=== PATIENT | female | born 2000 | race Two or more races ===

== ENCOUNTER 2024-08-17 22:35 | Emergency (ER) | payer OTHER ==
[~2024-08-17] VITALS: Ht 162.6 cm; Wt 61.2 kg
[2024-08-18] MEDS ORDERED: METOCLOPRAMIDE HCL 5 MG/ML VIAL IM STA (00:13)
[2024-08-18] MEDS ORDERED: 0.9 % SODIUM CHLORIDE 500 ML IV STA (00:14)
[2024-08-18] MEDS ORDERED: FAMOtidine 10 MG/ML (4ML VIAL) IV PUSH STA (00:14)
[2024-08-18] MEDS ORDERED: DIPHENOXYLATE HCL/ATROPINE 1 UDTAB TABLET PO STA (00:15)
== END 2024-08-18 02:45 | disposition home or self-care (01) ==
LOC: ER 22:38
DX: H81.10 Benign paroxysmal vertigo, unspecified ear (principal); K58.8 Other irritable bowel syndrome; Z88.0 Allergy status to penicillin